=== PATIENT | male | born 1995 | race Caucasian/White ===

== ENCOUNTER 2023-08-31 08:52 | Outpatient (CLI) | payer OTHER | END 2023-08-31 22:41 | disposition critical access hospital (66) | LOC: EMS 08:52 | DX: R10.31 Right lower quadrant pain (principal); R10.813 Right lower quadrant abdominal tenderness; R11.2 Nausea with vomiting, unspecified | CPT/HCPCS: A0425; A0427 ==

== ENCOUNTER 2023-08-31 09:11 | Emergency (ER) | payer OTHER ==
--- NOTE | 2023-08-31 09:16 | ED Physician Documentation ---
PD HPI ABD PAIN - Stated complaint Stated Complaint: ABD PX - History obtained from History obtained from: Patient, EMS - History of Present Illness Timing - onset: How many hours ago (4), Today (awoke at 5 am with abrupt severe pain.) Timing - duration: Hours (4) Timing - details: Abrupt onset, Still present Quality: Sharp, Pain Radiation: Right flank Improved by: No: Laying still, Position Worsened by: No: Moving, Breathing, Position Associated symptoms: Nausea, Vomiting. No: Fever, Diarrhea, Constipation, Dysuria, Testicular pain Similar symptoms before: Has not had sx before Recently seen: Not recently seen Review of Systems Constitutional: denies: Fever, Chills Cardiac: denies: Chest pain / pressure Respiratory: denies: Dyspnea GI: reports: Abdominal Pain, Nausea, Vomiting. denies: Constipation, Diarrhea PD PAST MEDICAL HISTORY - Present Medications Home Medications: Ambulatory Orders Medication Instructions Recorded Confirmed Naproxen 500 mg PO BID #20 tab 08/31/23 Ondansetron Odt [Zofran] 4 mg TL Q6H PRN #10 tablet 08/31/23 Oxycodone HCl/Acetaminophen 1 each PO Q6H PRN #20 tablet 08/31/23 [Percocet 5-325 mg Tablet] Tamsulosin [Flomax] 0.4 mg PO DAILY #5 cap 08/31/23 - Allergies Allergies/Adverse Reactions: Allergies Allergy/AdvReac Type Severity Reaction Status Date / Time No Known Drug Allergies Allergy Verified 08/31/23 09:35 PD ED PE NORMAL - Vitals Vital signs reviewed: Yes - General General: Alert and oriented X 3, Well developed/nourished, Other (appears in consdierable pain, holding still. ) - Cardiac Cardiac: RRR, No murmur - Respiratory Respiratory: No respiratory distress, Clear bilaterally - Abdomen Abdomen: Normal bowel sounds, Soft, Non distended, Other (some tender right abd but not in proportion to the steady pain.) - Back Back: Other (significant right CVA tenderness to percussion. ) - Derm Derm: Normal color, Warm and dry Results - Vitals Vitals: Vital Signs - 24 hr 08/31/23 08/31/23 08/31/23 09:33 11:17 13:29 Temperature 36.3 C L Heart Rate 61 86 83 Respiratory 14 16 18 Rate Blood Pressure 141/98 H 127/82 H 120/75 O2 Saturation 99 97 97 Oxygen O2 Source Room air - Labs Labs: Laboratory Tests 08/31/23 08/31/23 08/31/23 09:25 09:25 10:25 WBC 8.3 RBC 5.16 Hgb 14.6 Hct 45.3 MCV 87.8 MCH 28.3 MCHC 32.2 RDW 13.2 Plt Count 257 MPV 10.3 Neut # (Auto) 5.9 Lymph # (Auto) 1.6 [place] # (Auto) 0.5 Eos # (Auto) 0.2 Baso # (Auto) 0.0 Absolute Nucleated RBC 0.00 Nucleated RBC % 0.0 Sodium 141 Potassium 4.1 Chloride 105 Carbon Dioxide 32 Anion Gap 4.0 L BUN 15 Creatinine 0.9 Estimated GFR (MDRD) 101 Glucose 122 H Calcium 9.8 Total Bilirubin 0.6 AST 12 ALT 17 Alkaline Phosphatase 68 Total Protein 6.7 Albumin 4.3 Globulin 2.4 Albumin/Globulin Ratio 1.8 Lipase 51 Urine Color STRAW Urine Clarity SL. CLOUDY Urine pH 6.5 Ur Specific [place] 1.025 Urine Protein NEGATIVE Urine Glucose (UA) NEGATIVE Urine Ketones NEGATIVE Urine Occult Blood LARGE H Urine Nitrite NEGATIVE Urine Bilirubin NEGATIVE Urine Urobilinogen 0.2 (NORMAL) Ur Leukocyte Esterase NEGATIVE Urine RBC > Urine WBC 0-3 Ur Squamous Epith Cells RARE Squamous Urine Crystals 3-5 Calcium Oxalate Urine Bacteria Rare Urine Mucus Few Strands Ur Microscopic Review INDICATED Urine Culture Comments NOT INDICATED - Rads (name of study) abd/pelvic CT Relevant Findings:: Prelim report reviewed, Discussed with rads, EMP independent interpretation of test (6 mm stone proximal right ureter with mild hydronephrosis. ) PD Medical Decision Making - ED course Complexity details: reviewed results (the cause of pain is a kidney stone 6 mm in proximal ureter. ), re-evaluated patient (pain moderately improved with IV meds of Toradol, Diladud. and then repeat dose. Also added lidocaine IV for renal stones. Pt stated down to mild pain and comfortable heading home. ), considered differential (has onset pain that sounds most c/w stone, but also consider appy, diverticular, vascular. ), d/w patient Departure - Departure Disposition: 01 Home, Self Care Clinical Impression: Ureterolithiasis Condition: Stable Record reviewed to determine appropriate education?: Yes Instructions: ED Stone Renal W Colic Follow-Up: BRETT,LENNY, KARATE INSTRUCTOR [Primary Care Provider] - Adama Serrano MD [Provider Admit Priv/Credential] - Prescriptions: Tamsulosin [Flomax] 0.4 mg PO DAILY #5 cap Naproxen 500 mg PO BID #20 tab Oxycodone HCl/Acetaminophen [Percocet 5-325 mg Tablet] 1 each PO Q6H PRN #20 tablet PRN Reason: pain Ondansetron Odt [Zofran] 4 mg TL Q6H PRN #10 tablet PRN Reason: Nausea / Vomiting Comments: Your pain is from a medium sized kidney stone passing on the right. It is still in the upper part of the ureter so has three quarters [address] way to go from the kidney to the bladder. 90% of stones of this size will pass typically in a couple of days. Stay well-hydrated. Off duty for 2 to 3 days. Typically will use a combination of a antispasmodic for the ureter called tamsulosin in combination with anti-inflammatories and medication for nausea. I wrote prescriptions for these: Tamsulosin, naproxen and ondansetron. In addition then use Tylenol/acetaminophen 500 to 650 mg 4 times daily as a added pain medicine with oxycodone/acetaminophen if needed for worse pain. Return to the ER if uncontrolled symptoms despite the medicines. Otherwise if tolerable then see if the stone passes over the next couple of days. You can follow-up with your primary care or the urology office if it is persisting beyond several days to week. I sent your prescription to [facility] pharmacy in [place]. I am prescribing a short course of narcotic pain medication for you. These are potentially dangerous and addictive medications that should be used carefully. These medications may constipate you. Take an ghvj-yie-tsxonnc stool softener such as docusate twice daily with plenty of water while taking these medications. If you go 24 hours without a bowel movement, take fswd-hej-bdaarwc MiraLAX, per package instructions. Do not drink or drive while taking these medications. If you received narcotic or sedating medications while in the emergency department do not drive for 24 hours. Store this medication in a safe, secure place and out of reach of children. It is a violation of federal law to give or sell this medication to another person or to use in a manner other than prescribed. The ED will not refill narcotic prescriptions, including prescriptions lost or stolen. You can dispose of unwanted medications at the [facility]'s office or at several pharmacies such as [facility]. Forms: Activity restrictions Discharge Date/Time: 08/31/23 13:00
[2023-08-31 09:33] LABS: BASOPHILS % (AUTO) 0.5 %; EOSINOPHILS # (AUTO) 0.2 10^3/uL (0.0-0.7); EOSINOPHILS % (AUTO) 2.2 %; HCT - HEMATOCRIT 45.3 % (42.0-52.0); HGB - HEMOGLOBIN 14.6 g/dL (14.0-18.0); LYMPHOCYTES # (AUTO) 1.6 10^3/uL (1.5-3.5); LYMPHOCYTES % (AUTO) 19.5 %; MEAN CORPUSCULAR HEMOGLOBIN 28.3 pg (27.0-31.0); MEAN CORPUSCULAR HGB CONC 32.2 g/dL (32.0-36.0); MEAN CORPUSCULAR VOLUME 87.8 fL (80.0-94.0); MEAN PLATELET VOLUME 10.3 fL (7.4-11.4); MONOCYTES # (AUTO) 0.5 10^3/uL (0.0-1.0); MONOCYTES % (AUTO) 6.4 %; NEUTROPHILS # (AUTO) 5.9 10^3/uL (1.5-6.6); PLT - PLATELET COUNT 257 10^3/uL (130-450); RED BLOOD COUNT 5.16 10^6/uL (4.70-6.10); RED CELL DISTRIBUTION WIDTH 13.2 % (12.0-15.0); WHITE BLOOD COUNT 8.3 x10^3/uL (4.8-10.8)
[2023-08-31] MEDS ORDERED: iohexoL-300 100 ML VIAL ONE (09:40)
[2023-08-31] MEDS: SODIUM CHLORIDE 0.9% 1,000 ML IV STA (09:42)
[2023-08-31] MEDS: HYDROmorphone 1 MG/ML CARPUJECT IVP STA ×2 (09:42→11:48)
[2023-08-31] MEDS: ONDANSETRON 4 MG/2 ML VIAL IVP STA (09:42)
[2023-08-31 09:46] LABS: ALBUMIN 4.3 g/dL (3.2-5.5); ALBUMIN/GLOBULIN RATIO 1.8 (1.0-2.2); BILIRUBIN,TOTAL 0.6 mg/dL (0.2-1.0); CALCIUM 9.8 mg/dL (8.5-10.3); CREATININE 0.9 mg/dL (0.6-1.3); POTASSIUM 4.1 mmol/L (3.5-4.5); TOTAL PROTEIN 6.7 g/dL (6.4-8.9)
[2023-08-31 10:38] LABS: BILIRUBIN,URINE NEGATIVE (NEGATIVE); GLUCOSE, URINE (UA) NEGATIVE (NEGATIVE); KETONES,URINE (UA) NEGATIVE (NEGATIVE); LEUKOCYTE ESTERASE, URINE NEGATIVE (NEGATIVE); NITRITE,URINE NEGATIVE (NEGATIVE); OCCULT BLOOD,URINE LARGE (NEGATIVE); PH,URINE 6.5 PH (5.0-7.5); PROTEIN,URINE NEGATIVE (NEGATIVE); UROBILINOGEN,URINE 0.2 (NORMAL) E.U./dL (NORMAL)
[2023-08-31 10:42] LABS: CLARITY,URINE SL. CLOUDY (CLEAR)
[2023-08-31 10:49] LABS: BACTERIA,URINE Rare /HPF (None Seen); MUCUS,URINE Few Strands; SQUAMOUS EPITHELIAL CELL,UR RARE Squamous (<= Few); WBC,URINE 0-3 /HPF (0-3)
[2023-08-31 10:50] LABS: CRYSTALS,URINE 3-5 Calcium Oxalate /LPF
--- NOTE | 2023-08-31 11:13 | CT Report ---
PROCEDURE: Abdomen/Pelvis W INDICATIONS: RLQ Abdominal pain, appendicitis suspected CONTRAST: Omni 300 100ml TECHNIQUE: After the administration of intravenous contrast, a CT scan of the abdomen and pelvis was performed. Images were recorded and evaluated at appropriate window settings. Reformats: coronal and sagittal. F or radiation dose reduction, the following was used: automated exposure control, adjustment of mA and /or kV according to patient size. COMPARISON: None. FINDINGS: Image quality: Diagnostic. Lower chest: Unremarkable. Liver: No solid mass. Gallbladder: No radiopaque stones or wall thickening. Biliary tree: No intrahepatic or extrahepatic dilation, accounting for age. Spleen: No splenomegaly. Pancreas: No pancreatic ductal dilation. Adrenals: No adrenal nodule. Kidneys and ureters: No hydronephrosis. No renal cystic lesion which requires follow up. No solid mas s. Stomach, bowel and peritoneum: No gastric or small bowel dilation. The distal descending colon and si gmoid are decompressed with mild wall prominence. Cannot exclude mild focal colitis. However, this ma y simply be secondary to underdistention. No pathologic free fluid. Sigmoid diverticulosis without ev idence of acute diverticulitis. There is air present in the appendix near the base as it enters into the cecum. Distally, the appendix is mildly prominent in caliber and fluid-filled. At the tip, measur es approximately 6.5 mm. This is presumed to represent a normal noninflamed appendix. However, cannot exclude very early appendicitis. Lymph nodes: No central or retroperitoneal adenopathy. Vessels: No infrarenal aortic aneurysm. Patent portal vein. PELVIS Reproductive organs: Unremarkable. Bladder: No abnormal wall thickening, accounting for underdistention. Pelvic lymph nodes: No pelvic adenopathy by size criteria. Bones: No aggressive osseous abnormality. Other: No significant ventral or inguinal hernia. IMPRESSION: 1. Question underdistention of the distal descending colon through the sigmoid versus mild segmental colitis. 2. Appendix is presumed to be within normal limits. However, cannot exclude early appendicitis. Recom mend clinical correlation. Reviewed by: Puneet Rizo MD on 08/31/2023 11:12 AM PDT Approved by: Puneet Rizo MD on 08/31/2023 11:12 AM PDT Station ID: [id number]
[2023-08-31 11:29] VITALS: O2SAT 97
[2023-08-31] MEDS ORDERED: LIDOCAINE-MPF 2% 5 ML VIAL ONE (11:43)
[2023-08-31] MEDS: TAMSULOSIN 0.4 MG CAPSULE PO STA (11:48)
[2023-08-31] MEDS: LIDOCAINE-MPF 2% 7 ML in SODIUM CHLORIDE 0.9% 50 ML IV STA (12:06)
[2023-08-31 13:32] VITALS: BP 120/75
[2023-08-31] MEDS: iohexoL-300 100 ML VIAL IVP ONE (13:44)
== END 2023-08-31 13:00 | disposition home or self-care (01) ==
LOC: ED 09:11
DX: N13.2 Hydronephrosis with renal and ureteral calculous obstruction (principal)
CPT/HCPCS: 36415; 74177; 80053; 81001; 83690; 85025; 96361; 96365; 96375; 96376; 99284; 99285; A9270; J1170; J7040; Q9967; 81003; 87086

== ENCOUNTER 2023-10-17 16:02 | Emergency (ER) | payer OTHER ==
[2023-10-17 16:40] LABS: BILIRUBIN,URINE NEGATIVE (NEGATIVE); GLUCOSE, URINE (UA) NEGATIVE (NEGATIVE); KETONES,URINE (UA) TRACE mg/dL (NEGATIVE); LEUKOCYTE ESTERASE, URINE MODERATE (NEGATIVE); NITRITE,URINE POSITIVE (NEGATIVE); OCCULT BLOOD,URINE LARGE (NEGATIVE); PH,URINE 6.5 PH (5.0-7.5); PROTEIN,URINE >=300 mg/dL (NEGATIVE); UROBILINOGEN,URINE 1 (NORMAL) E.U./dL (NORMAL)
[2023-10-17 16:49] LABS: BACTERIA,URINE Rare /HPF (None Seen); CLARITY,URINE CLOUDY (CLEAR); RBC,URINE TNTC /HPF (0-5); SQUAMOUS EPITHELIAL CELL,UR NONE SEEN (<= Few)
[2023-10-17 18:29] LABS: BASOPHILS # (AUTO) 0.1 10^3/uL (0.0-0.1); BASOPHILS % (AUTO) 0.5 %; EOSINOPHILS # (AUTO) 0.3 10^3/uL (0.0-0.7); EOSINOPHILS % (AUTO) 2.9 %; HCT - HEMATOCRIT 43.1 % (42.0-52.0); HGB - HEMOGLOBIN 14.2 g/dL (14.0-18.0); LYMPHOCYTES % (AUTO) 30.5 %; MEAN CORPUSCULAR HEMOGLOBIN 28.3 pg (27.0-31.0); MEAN CORPUSCULAR HGB CONC 32.9 g/dL (32.0-36.0); MEAN PLATELET VOLUME 10.2 fL (7.4-11.4); MONOCYTES # (AUTO) 0.5 10^3/uL (0.0-1.0); MONOCYTES % (AUTO) 5.6 %; NEUTROPHILS # (AUTO) 5.8 10^3/uL (1.5-6.6); NEUTROPHILS % (AUTO) 60.2 %; PLT - PLATELET COUNT 230 10^3/uL (130-450); RED BLOOD COUNT 5.01 10^6/uL (4.70-6.10); RED CELL DISTRIBUTION WIDTH 12.9 % (12.0-15.0); WHITE BLOOD COUNT 9.7 x10^3/uL (4.8-10.8)
--- NOTE | 2023-10-17 18:31 | ED Physician Documentation ---
History of Present Illness - Stated complaint Stated Complaint: - Chief complaint Chief Complaint: UTI - History obtained from History obtained from: Patient - History of Present Illness Pain level max: 7 Pain level now: 7 - Additonal information Additional information: Patient is a 28-year-old male who presents to the emergency department complaint of right flank pain. He states that he had a recent lithotripsy with ureteral stent placement at [facility]. This was done about 2 weeks ago. He has had increasing pain on the right side over the past few days, became worse today. Has an appointment with his urologist in a week. Has noted blood in the urine as well. No fevers. No chills. No vomiting. No diarrhea. Nothing makes it better or worse. Took oxycodone this morning without relief. Review of Systems Constitutional: denies: Fever, Chills Respiratory: denies: Cough GI: denies: Vomiting, Diarrhea Skin: denies: Rash Musculoskeletal: denies: Neck pain Neurologic: denies: Focal weakness, Numbness, Headache PD PAST MEDICAL HISTORY - Past Medical History Past Medical History: Yes Cardiovascular: None Respiratory: None Neuro: None Endocrine/Autoimmune: None GI: None : Kidney stones HEENT: None Psych: None Musculoskeletal: None Derm: None - Past Surgical History Past Surgical History: No - Present Medications Home Medications: Ambulatory Orders Medication Instructions Recorded Confirmed Naproxen 500 mg PO BID #20 tab 08/31/23 10/17/23 Ondansetron Odt [Zofran] 4 mg TL Q6H PRN #10 tablet 08/31/23 10/17/23 Oxycodone HCl/Acetaminophen 1 each PO Q6H PRN #20 tablet 08/31/23 10/17/23 [Percocet 5-325 mg Tablet] Tamsulosin [Flomax] 0.4 mg PO DAILY #5 cap 08/31/23 10/17/23 HYDROmorphone [Dilaudid] 2 mg PO Q6H PRN #10 tablet 10/17/23 Tamsulosin [Flomax] 0.4 mg PO DAILY #14 cap 10/17/23 cephALEXin [Keflex] 500 mg PO Q6H #28 cap 10/17/23 - Allergies Allergies/Adverse Reactions: Allergies Allergy/AdvReac Type Severity Reaction Status Date / Time No Known Drug Allergies Allergy Verified 10/17/23 16:17 - Social History Does the pt smoke?: Yes Smoking Status: Current every day smoker Does the pt drink ETOH?: Yes Does the pt have substance abuse?: No - Immunizations Immunizations are current?: Yes - POLST Patient has POLST: No PD ED PE NORMAL - Vitals Vital signs reviewed: Yes - General General: Alert and oriented X 3, No acute distress - HEENT HEENT: Moist mucous membranes - Cardiac Cardiac: RRR, Strong equal pulses - Respiratory Respiratory: No respiratory distress, Clear bilaterally - Abdomen Abdomen: Soft, Non tender, Non distended - Back Back: Other (Mild right CVA tenderness) - Derm Derm: Warm and dry - Extremities Extremities: No edema - Neuro Neuro: Alert and oriented X 3 - Psych Psych: Normal mood, Normal affect Results - Vitals Vitals: Vital Signs - 24 hr 10/17/23 10/17/23 16:17 20:41 Temperature 36.6 C Heart Rate 85 95 Respiratory 18 26 H Rate Blood Pressure 128/83 H 96/60 O2 Saturation 99 97 Oxygen O2 Source Room air - Labs Labs: Laboratory Tests 10/17/23 10/17/23 10/17/23 16:30 18:25 18:25 WBC 9.7 RBC 5.01 Hgb 14.2 Hct 43.1 MCV 86.0 MCH 28.3 MCHC 32.9 RDW 12.9 Plt Count 230 MPV 10.2 Neut # (Auto) 5.8 Lymph # (Auto) 3.0 [place] # (Auto) 0.5 Eos # (Auto) 0.3 Baso # (Auto) 0.1 Absolute Nucleated RBC 0.00 Nucleated RBC % 0.0 Sodium 141 Potassium 3.5 Chloride 103 Carbon Dioxide 32 Anion Gap 6.0 BUN 14 Creatinine 0.9 Estimated GFR (MDRD) 101 Glucose 103 Calcium 9.4 Total Bilirubin 0.5 AST 11 ALT 15 Alkaline Phosphatase 75 Total Protein 6.3 L Albumin 4.1 Globulin 2.2 Albumin/Globulin Ratio 1.9 Lipase 30 Urine Color RED/BLOODY Urine Clarity CLOUDY Urine pH 6.5 Ur Specific [place] 1.025 Urine Protein >=300 H Urine Glucose (UA) NEGATIVE Urine Ketones TRACE Urine Occult Blood LARGE H Urine Nitrite POSITIVE H Urine Bilirubin NEGATIVE Urine Urobilinogen 1 (NORMAL) Ur Leukocyte Esterase MODERATE H Urine RBC TNTC H Urine WBC 6-10 H Ur Squamous Epith Cells NONE SEEN Urine Bacteria Rare Ur Microscopic Review INDICATED Urine Culture Comments INDICATED - Rads (name of study) CT abdomen pelvis Relevant Findings:: Final report received, See rad report PD Medical Decision Making - ED course Complexity details: reviewed results, re-evaluated patient, considered differential, d/w patient, d/w parts consultant ED course: 28-year-old male with right flank pain status post lithotripsy and stent placement. CT scan was performed which does show a stent in normal position but appears to be potentially occluded. Normal creatinine. Normal white blood cell count. Discussed the case with urology at [facility], on-call for his urologist, Dr. Mccarty. They recommend a dose of Rocephin, oral cephalexin. Pain control. They will follow-up with the patient in the morning to discuss stent removal. Patient is well-appearing, nontoxic. Afebrile. Patient was counseled that if his pain worsens or he develops fevers or any other new or worrisome symptoms he should go directly to [facility] to have the stent removed emergently. Patient counseled regarding signs and symptoms for which I believe and urgent re-evaluation would be necessary. Patient with good understanding of and agreement to plan and is comfortable going home at this time This document was made in part using voice recognition software. While efforts are made to proofread this document, sound alike and grammatical errors may occur. Departure - Departure Disposition: 01 Home, Self Care Clinical Impression: Ureteral stent occlusion Qualifiers: Encounter type: initial encounter Qualified Code(s): T83.192A - Other mechanical complication of indwelling ureteral stent, initial encounter Condition: Good Instructions: Stents Ureteral Follow-Up: FER MCCARTY MD [Physician No Access] - Tomorrow Prescriptions: HYDROmorphone [Dilaudid] 2 mg PO Q6H PRN #10 tablet PRN Reason: pain Tamsulosin [Flomax] 0.4 mg PO DAILY #14 cap cephALEXin [Keflex] 500 mg PO Q6H #28 cap Comments: I spoke with urology on-call tonight for Dr. Mccarty, they recommend placing you on antibiotics, pain medication and Flomax. The urology office at [facility] should call you in the morning, if you do not hear from them by late morning/early afternoon, please contact the office to have an urgent stent removal as your stent does appear occluded. If you develop fevers or worsening pain, please go directly to the [facility] emergency department. I am prescribing a short course of narcotic pain medication for you. These are potentially dangerous and addictive medications that should be used carefully. These medications may constipate you. Take an qyxf-hph-bmvonrv stool softener (docusate) twice daily with plenty of water while taking these medications. If you go 24 hours without a bowel movement, take xpjc-kzh-yphfrjq miralax, per package instructions. Do not drink or drive while taking these medications. If you received narcotic or sedating medications while in the emergency department, do not drive for 24 hours. Store this medication in a safe, secure place and out of reach of children. It is a violation of federal law to give or sell this medication to another person or to use in a manner other than prescribed. The ED will not refill narcotic prescriptions, including prescriptions lost or stolen. To dispose of unwanted medications: 1. [facility] at [address] in [place] has a medication drop box. They accept prescription medications (in pill form) Tuesday through Tuesday 9:00 a.m. to 5:00 p.m. 2. The [facility] [employer] accepts prescription medications (in pill form only) for disposal year round. Call for more information. 3. Contact the [facility] for the next [facility] sponsored prescription drug collection event. , [phone], or [phone]; EXAM: [id number] CT/ABPEWO ([id number]) PROCEDURE: Abdomen/Pelvis WO INDICATIONS: pain s/p ureteral stent TECHNIQUE: A CT scan of the abdomen and pelvis was performed without the use of intravenous contrast. Images were recorded and evaluated at appropriate window settings. Reformats: coronal and sagittal. For radiation dose reduction, the following was used: automated exposure control, adjustment of mA and/or kV according to patient size. COMPARISON: CT abdomen and pelvis on August 31, 2023.. FINDINGS: Image quality: Diagnostic. Lower chest: Unremarkable. Evaluation of the visceral organs is limited due to the lack of intravenous contrast. Liver: No contour-deforming mass. Gallbladder: No radiopaque stones or wall thickening. Biliary tree: No intrahepatic or extrahepatic dilation, accounting for age. Spleen: No splenomegaly. Pancreas: No pancreatic ductal dilation. Adrenals: No adrenal nodule. Kidneys and ureters: Moderate right-sided hydronephrosis. Double-J ureteral stent appears a peripherally positioned with proximal pigtail in the renal pelvis and distal pi gtail in the bladder. Mild periureteral fat stranding. Previously seen right proximal ureteral nephrolith is no longer seen. Punctate left upper pole nonobstructive nephrolith measuring 2 mm (2/37). No left-sided hydroureteronephrosis. Stomach, bowel and peritoneum: No gastric or small bowel dilation. No abnormal wall thickening. No pathologic free fluid. Normal appendix. Lymph nodes: No central or retroperitoneal adenopathy. Vessels: No infrarenal aortic aneurysm. Reproductive organs: Unremarkable. Bladder: Bladder wall thickness is normal, accounting for underdistention. No calcified bladder stones. Pelvic lymph nodes: No adenopathy by size criteria. Bones: No aggressive osseous abnormality. Other: Tiny fat-containing umbilical hernia. No inguinal hernia. IMPRESSION: 1.Right double-J ureteral stent is appropriately positioned. Moderate right- sided hydronephrosis with ureteral fat stranding, increased compared to prior CT dated August 31, 2023, suggesting the stent is occluded.Previously seen right proximal ureteral stone is no longer seen. Correlate with urinalysis and culture. 2.No left-sided hydronephrosis. Left upper pole punctate nonobstructive nephrolith. Discharge Date/Time: 10/17/23 21:39
[2023-10-17] MEDS: HYDROmorphone 1 MG/ML CARPUJECT IM STA ×2 (18:36→20:57)
[2023-10-17 18:46] LABS: ALBUMIN 4.1 g/dL (3.2-5.5); ALBUMIN/GLOBULIN RATIO 1.9 (1.0-2.2); BILIRUBIN,TOTAL 0.5 mg/dL (0.2-1.0); CALCIUM 9.4 mg/dL (8.5-10.3); CREATININE 0.9 mg/dL (0.6-1.3); POTASSIUM 3.5 mmol/L (3.5-4.5); TOTAL PROTEIN 6.3 g/dL (6.4-8.9)
--- NOTE | 2023-10-17 20:15 | CT Report ---
PROCEDURE: Abdomen/Pelvis WO INDICATIONS: pain s/p ureteral stent TECHNIQUE: A CT scan of the abdomen and pelvis was performed without the use of intravenous contrast. Images we re recorded and evaluated at appropriate window settings. Reformats: coronal and sagittal. For radiat ion dose reduction, the following was used: automated exposure control, adjustment of mA and/or kV ac cording to patient size. COMPARISON: CT abdomen and pelvis on August 31, 2023.. FINDINGS: Image quality: Diagnostic. Lower chest: Unremarkable. Evaluation of the visceral organs is limited due to the lack of intraveno us contrast. Liver: No contour-deforming mass. Gallbladder: No radiopaque stones or wall thickening. Biliary tree: No intrahepatic or extrahepatic dilation, accounting for age. Spleen: No splenomegaly. Pancreas: No pancreatic ductal dilation. Adrenals: No adrenal nodule. Kidneys and ureters: Moderate right-sided hydronephrosis. Double-J ureteral stent appears a periphera lly positioned with proximal pigtail in the renal pelvis and distal pigtail in the bladder. Mild aspen ureteral fat stranding. Previously seen right proximal ureteral nephrolith is no longer seen. Punctat e left upper pole nonobstructive nephrolith measuring 2 mm (2/37). No left-sided hydroureteronephrosi s. Stomach, bowel and peritoneum: No gastric or small bowel dilation. No abnormal wall thickening. No pa thologic free fluid. Normal appendix. Lymph nodes: No central or retroperitoneal adenopathy. Vessels: No infrarenal aortic aneurysm. Reproductive organs: Unremarkable. Bladder: Bladder wall thickness is normal, accounting for underdistention. No calcified bladder stone s. Pelvic lymph nodes: No adenopathy by size criteria. Bones: No aggressive osseous abnormality. Other: Tiny fat-containing umbilical hernia. No inguinal hernia. IMPRESSION: 1.Right double-J ureteral stent is appropriately positioned. Moderate right-sided hydronephrosis with ureteral fat stranding, increased compared to prior CT dated August 31, 2023, suggesting the stent is occluded.Previously seen right proximal ureteral stone is no longer seen. Correlate with urinalysis a nd culture. 2.No left-sided hydronephrosis. Left upper pole punctate nonobstructive nephrolith. Reviewed by: Christina Rajan MD on 10/17/2023 7:14 PM AKDT Approved by: Christina Rajan MD on 10/17/2023 7:14 PM PENNY Station ID: [id number]
[2023-10-17 20:41] VITALS: BP 96/60; O2SAT 97
[2023-10-17] MEDS: TAMSULOSIN 0.4 MG CAPSULE PO STA (21:32)
[2023-10-17] MEDS: cefTRIAXone 1 GM VIAL IM STA (21:32)
[2023-10-17] MEDS: LIDOCAINE 1% 2 ML VIAL MC ONE (21:32)
== END 2023-10-17 21:39 | disposition home or self-care (01) ==
LOC: ED 16:02
DX: T83.192A Other mechanical complication of indwelling ureteral stent, initial encounter (principal); Z87.442 Personal history of urinary calculi; Z79.899 Other long term (current) drug therapy; F17.200 Nicotine dependence, unspecified, uncomplicated
CPT/HCPCS: 36415; 74176; 80053; 81001; 83690; 85025; 87086; 96372; 99284; A9270; J1170; 81003